=== PATIENT | female | born 1985 | race Caucasian/White ===

== ENCOUNTER → 2016-12-29 | Emergency (ER) | payer OTHER ==
[2016-12-29 21:43] VITALS: TEMP 98.2; BMI 22.3
--- NOTE | 2016-12-29 22:20 | PDOC ---
History of Present Illness <Jean Carlos Talbert - Last Filed: 12/30/16 02:03> - History of Present Illness Initial Comments: 12/29/16 22:42 Patient is a 31 year old female (LNMP: 11/26/16) with no significant medical hx who is presenting to the ED with vaginal spotting and abdominal pain for 2-3 days. Patient reports some brown vaginal spotting but denies any heavy bleeding. She endorses some nausea and RLQ pain with radiation to the lower back. Patient does not receive care. Denies fever, chills, vomiting, or diarrhea. G3/M2/P0 Reports miscarriages occurred within first trimester. Last pap smear was one year ago that was normal. <Missy Prince - Last Filed: 12/30/16 02:07> - General Chief Complaint: Vaginal Bleeding Stated Complaint: VAGINAL BLEEDING/5 WKS Time Seen by Provider: 12/29/16 22:20 Past History - Psycho/Social/Smoking Cessation Hx Anxiety: No Suicidal Ideation: No Smoking History: Never smoked Have you smoked in the past 12 months: No Information on smoking cessation initiated: No Hx Alcohol Use: No Drug/Substance Use Hx: No Substance Use Type: None <Jean Carlos Talbert - Last Filed: 12/30/16 02:03> <Missy Prince - Last Filed: 12/30/16 02:07> - Past Medical History Allergies/Adverse Reactions: Allergies Allergy/AdvReac Type Severity Reaction Status Date / Time No Known Allergies Allergy Verified 12/29/16 21:43 Home Medications: Ambulatory Orders NK [No Known Home Medication] 12/29/16 Review of Systems - Review of Systems Comments:: 12/29/16 22:46 CONSTITUTIONAL: No fever, no chills, no fatigue EYES: No visual changes ENT: No ear pain, no sore throat CARDIOVASCULAR: No chest pain, no palpitations RESPIRATORY: No cough, no SOB GI: RLQ pain, nausea. No vomiting, no constipation, no diarrhea GENITOURINARY: Vaginal spotting. No dysuria, no frequency, no hematuria MUSKULOSKELETAL: No backpain, no joint pain, no myalgias SKIN: No rash NEURO: No headache <Missy Prince - Last Filed: 12/30/16 02:07> *Physical Exam - Vital Signs Last Vital Signs Temp Pulse Resp BP Pulse Ox 98.2 F 80 17 111/70 99 12/29/16 21:39 12/29/16 21:39 12/29/16 21:39 12/29/16 21:39 12/29/16 21:39 <Jean Carlos Talbert - Last Filed: 12/30/16 02:03> - Vital Signs Last Vital Signs Temp Pulse Resp BP Pulse Ox 98.2 F 80 17 111/70 99 12/29/16 21:39 12/29/16 21:39 12/29/16 21:39 12/29/16 21:39 12/29/16 21:39 - Physical Exam Comments: 12/29/16 22:54 CONSTITUTIONAL: Well-appearing; well-nourished; in no apparent distress HEAD: Normocephalic; atraumatic EYES: PERRL; EOM intact ENMT: External appears normal; normal oropharynx NECK: Supple; non-tender; no cervical lymphadenopathy CARD: Normal S1, S2; no murmurs, rubs, or gallops RESP: Normal chest excursion with respiration; breath sounds clear and equal bilaterally; no wheezes, rhonchi, or rales ABD: Soft, non-distended; non-tender; no palpable organomegaly, no palpable hernias EXT: Normal ROM in all four extremities; non-tender to palpation; distal pulses intact SKIN: Warm, dry, no rash NEURO: No focal neurological deficiencies. PELVIC: No external lesions. Small amount of brown blood in the vaginal vault. Os is closed. (exam chaperoned by Missy Prince) <Missy Prince - Last Filed: 12/30/16 02:07> ED Treatment Course - LABORATORY CBC & Chemistry Diagram: 12/29/16 22:58 <Jean Carlos Talbert - Last Filed: 12/30/16 02:03> - LABORATORY CBC & Chemistry Diagram: 12/29/16 22:58 - RADIOLOGY Radiograph Interpretation: 12/30/16 01:53 Application Dba: (matteo) Report Date: 12/30/2016 00:01:00 Report Status: Preliminary Begin of Report Content Referring Physician: Jean Carlos Talbert Patient Name: Laureen Whitehead THIS IS A PRELIMINARY REPORT FROM IMAGING FORMULA TECHNICIAN EXAM: Ultrasound , first trimester and pelvic duplex IMAGES: 53 INDICATION: Left ectopic . Beta hCG level of 2991 DATE OF SERVICE: 2016-12-30 00:01:23.0 COMPARISON: none FINDINGS: Ultrasound : Is anteverted and measures 9.2 cm in length there is a tiny i of the endometrium cystic structure, possibly an AP. A yolk sac or pole. Left ovary is 3.5 cm in length, appears normal dimensions normal flow. Right ovary 2.9 cm in length, contains a thick walled cyst, likely a corpus luteum, but demonstrates normal flow. There is minimal free fluid. Pelvic duplex: Normal arterial and venous flow is noted in both ovaries. IMPRESSION: Possible early IUP prior to visualization of yolk sac or pole. Presumed right ovarian corpus luteum with minimal free fluid. Recommend follow up sonography would correlation to hCG levels for further evaluation. THIS DOCUMENT HAS BEEN ELECTRONICALLY SIGNED José Miguel Hammer MD 12/30/2016 00:54 EST Jeannette. Please call Imaging [facility] [employer] Captain [phone] ([phone]) with questions. End of Report Content <Missy Prince - Last Filed: 12/30/16 02:07> Medical Decision Making - Medical Decision Making 12/30/16 02:03 Patient is a well-appearing 31-year-old female, 3 para 0, last menstrual period of 11/26/2016 presents with mild right lower pelvic pain and vaginal spotting. In the ER, patient is awake and alert, afebrile, hemodynamically stable. Pelvic exam reveals minimal brown blood/discharge in the vaginal vault. Cervical os is closed. Patient's beta hCG is noted to be 2999. Transvaginal challenge shows a questionable endometrial cystic structure which may represent the yolk sac or pole. No definitive evidence of intrauterine is noted. A small thick walled corpus luteum cyst on the right is also noted. There is also trace amount of free fluid. Patient will be discharged with strict ectopic precautions with TOOLROOM MACHINIST follow-up for care. no Rhogam is indicated as patient is Rh+. <Jean Carlos Talbert - Last Filed: 12/30/16 02:03> *DC/Admit/Observation/Transfer - Attestations Physician Attestion: 12/30/16 02:03 The documentation was prepared by the scribe under my direct supervision. I have reviewed the documentation which correctly represents the findings, medical decision-making and critical action taken by me. <Jean Carlos Talbert - Last Filed: 12/30/16 02:03> - Attestations Scribe Attestion: 12/29/16 22:47 Documentation prepared by Missy Prince, acting as medical interpreter for Jean Carlos Talbert MD. <Missy Prince - Last Filed: 12/30/16 02:07> Diagnosis at time of Disposition: Threatened - Discharge Dispostion Disposition: HOME - Referrals Referrals: [facility] [Provider Group] - Patient Instructions Printed Discharge Instructions: DI for Threatened Print Language: TURKISH
[2016-12-29 23:14] LABS: BASOPHIL 0.7 % (0-2.0); EOSINOPHIL 5.6 % (0-4.5); MCH 31.1 pg (25.7-33.7); MEAN CELL VOLUME 91.4 fl (80-96); MEAN PLT VOLUME 7.8 fl (7.5-11.1); NEUTROPHILS 45.7 % (42.8-82.8); PLATELET COUNT 280 K/MM3 (134-434); RDW 13.2 % (11.6-15.6); WHITE BLOOD COUNT 9.1 K/mm3 (4.0-10.0)
[2016-12-29 23:20] LABS: URINE APPEARANCE CLEAR; URINE BILIRUBIN NEGATIVE (NEGATIVE); URINE COLOR LTYELLOW; URINE GLUCOSE (UA) 1+ (NEGATIVE); URINE KETONE TRACE (NEGATIVE); URINE LEUK ESTERASE NEGATIVE (NEGATIVE); URINE NITRITE NEGATIVE (NEGATIVE); URINE PROTEIN NEGATIVE (NEGATIVE); URINE UROBILINOGEN NEGATIVE E.U./dl (0.2-1.0)
[2016-12-29 23:24] LABS: URINE BLOOD 1+ (NEGATIVE)
[2016-12-29 23:27] LABS: URINE BACTERIA RARE /hpf (NONE SEEN); URINE MUCUS RARE; URINE RBC <1 /hpf (0-3); URINE WBC <1 /hpf (3-5)
[2016-12-30 02:30] VITALS: BP 102/57; PULSE 71
== END | disposition home or self-care (01) ==
LOC: SUPCPDRO 21:27 → JER 21:27
DX: O20.0 Threatened abortion (principal); O34.81 Maternal care for other abnormalities of pelvic organs, first trimester; N83.11 Corpus luteum cyst of right ovary; Z3A.01 Less than 8 weeks gestation of pregnancy
CPT/HCPCS: 36415; 76817-TC; 81003; 81015; 84702; 85025; 86850; 86900; 86901; 87086; 99282-25

== ENCOUNTER 2017-01-03 13:14 | Emergency (ER) | payer SELFPAY ==
[2017-01-03 13:18] VITALS: BP 111/57; PULSE 80; TEMP 97.9; BMI 24.0
--- NOTE | 2017-01-03 14:06 | PDOC ---
History of Present Illness - General Chief Complaint: Vaginal Bleeding Stated Complaint: VAGINAL BLEEDING (5 WKS ) Time Seen by Provider: 01/03/17 13:30 History Source: Patient Exam Limitations: No Limitations - History of Present Illness Travel History: No Initial Comments: 01/03/17 13:58 31-year-old female presents the ED with complaints of increased vaginal bleeding since Monday. Patient states was seen here had an ultrasound that showed an early IUP and had a beta hCG of 2900. Patient states was told to return here if symptoms worsen otherwise she can follow-up with her SPEECH COACH. Patient states although the abdominal pain has not increased she is concerned about the bright red blood. Patient denies passage of large clot and denies low back pain. Timing/Duration: reports: getting worse Quality: reports: mild, cramping Abdominal Pain Onset Location: reports: suprapubic Pain Radiation: reports: no radiation Activities at Onset: reports: none Aggravating Factors: improves with: None Alleviating Factors: improves with: None Past History - Past Medical History Allergies/Adverse Reactions: Allergies Allergy/AdvReac Type Severity Reaction Status Date / Time No Known Allergies Allergy Verified 01/03/17 13:18 Home Medications: Ambulatory Orders NK [No Known Home Medication] 12/29/16 - Psycho/Social/Smoking Cessation Hx Anxiety: No Suicidal Ideation: No Smoking History: Never smoked Have you smoked in the past 12 months: No Information on smoking cessation initiated: No Hx Alcohol Use: No Drug/Substance Use Hx: No Substance Use Type: None Patient Lives Alone: No Lives with/in: spouse/SO Review of Systems - Review of Systems Able to Perform ROS?: Yes Constitutional: No: Symptoms Reported HEENTM: No: Symptoms Reported Respiratory: No: Symptoms reported Cardiac (ROS): No: Symptoms Reported ABD/GI: Yes: Abdominal cramping : Yes: Discharge Musculoskeletal: No: Symptoms Reported Neurological: No: Symptoms reported Hematologic/Lymphatic: No: Easy Bleeding *Physical Exam - Vital Signs Last Vital Signs Temp Pulse Resp BP Pulse Ox 97.9 F 80 18 111/57 100 01/03/17 13:15 01/03/17 13:15 01/03/17 13:15 01/03/17 13:15 01/03/17 13:15 - Physical Exam General Appearance: Yes: Nourished, Appropriately Dressed. No: Apparent Distress HEENT: negative: Pale Conjunctivae Neck: positive: Normal Thyroid, Supple Respiratory/Chest: positive: Lungs Clear, Normal Breath Sounds. negative: Respiratory Distress, Accessory Muscle Use Cardiovascular: positive: Regular Rhythm, Regular Rate. negative: Murmur Female Pelvic Exam: positive: cervical os closed, vaginal bleeding (bright red in moderate amt). negative: CMT, adnexal tenderness Gastrointestinal/Abdominal: positive: Soft, Tenderness (mild midsuprapubiuc) Musculoskeletal: negative: CVA Tenderness Extremity: positive: Normal Capillary Refill. negative: Pedal Edema Integumentary: positive: Normal Color, Warm, Moist Neurologic: positive: Motor Strength 5/5 (ambulatory) ED Treatment Course - LABORATORY CBC & Chemistry Diagram: 01/03/17 14:56 01/03/17 13:40 Medical Decision Making - Medical Decision Making 01/03/17 14:06 Patient with increased vaginal bleeding since Monday. Patient had an ultrasound that showed early IUP and is approximately 5-6 weeks . Patient exam did have bright red blood without adnexal tenderness or opened os. Patient ordered for labs and will repeat ultrasound. Laboratory Tests 12/29/16 12/29/16 12/29/16 22:58 22:58 22:58 WBC 9.1 Hgb 14.0 Hct 41.2 Plt Count 280 Eosinophils % 5.6 H Beta HCG, Quant 2991.8 Urine Color Ltyellow Urine Appearance Clear Urine pH 6.0 Ur Specific [place] 1.020 Urine Protein Negative Urine Glucose (UA) 1+ H Urine Ketones Trace H Urine Blood 1+ H Urine Nitrite Negative Ur Leukocyte Esterase Negative Urine WBC <1 01/03/17 15:07 Laboratory Tests 01/03/17 01/03/17 13:40 13:40 Sodium 137 Potassium 5.0 Chloride 102 Carbon Dioxide 27 Anion Gap 8 BUN 7 Creatinine 0.5 L Random Glucose 79 Calcium 10.0 Total Bilirubin 1.5 H AST 28 ALT 31 Alkaline Phosphatase 53 Total Protein 7.9 Albumin 4.3 Beta HCG, Quant 86905.4 Urine Protein 1+ H Urine Blood 3+ H Ur Leukocyte Esterase Negative 01/03/17 16:35 Ultrasound shows a fluid collection that has the appearance of a gestational sac. The mean sac diameter measurement corresponds with gestational age of 5 weeks 3 days. Yolk sac is present however there is no pole identified. There for the viability of his sensation is uncertain. Adjacent to the gestational sac is a small hypoechoic area suspicious a subchorionic bleed. Clinical correlation and continued follow-up as advised. There is no evidence of adnexal masses or free fluid within the pelvis. The right ovary is normal in size and does contain a small cyst measuring 1.3I 1.2 x 0.9 cm. Previous ultrasound that was done on 12/30 demonstrated there was a growth of this structure within the uterus. The right ovary measured 2.9 cm in length. *DC/Admit/Observation/Transfer Diagnosis at time of Disposition: Threatened in first trimester - Discharge Dispostion Disposition: HOME Condition at time of disposition: Good - Patient Instructions Printed Discharge Instructions: DI for Threatened Additional Instructions: Please follow-up with your SPEECH COACH and bring copy of ultrasound report with you. May return to ED if symptoms worsen . otherwise take Tylenol for discomfort
[2017-01-03 14:43] LABS: ALBUMIN 4.3 g/dl (3.4-5.0); ANION GAP 8 (8-16); BILIRUBIN,TOTAL 1.5 mg/dL (0.2-1.0); CO2 27 mmol/L (21-32); COCKROFT - GAULT 164.9255; CREATININE 0.5 mg/dL (0.55-1.02); GLUCOSE,RANDOM 79 mg/dL (74-106); SGPT/ALT 31 U/L (12-78); TOT PROT 7.9 g/dl (6.4-8.2)
[2017-01-03 14:55] LABS: URINE APPEARANCE SLCLOUDY; URINE BILIRUBIN NEGATIVE (NEGATIVE); URINE COLOR LTYELLOW; URINE GLUCOSE (UA) NEGATIVE (NEGATIVE); URINE KETONE NEGATIVE (NEGATIVE); URINE LEUK ESTERASE NEGATIVE (NEGATIVE); URINE NITRITE NEGATIVE (NEGATIVE); URINE UROBILINOGEN NEGATIVE E.U./dl (0.2-1.0)
[2017-01-03 15:00] LABS: ALK PHOS 53 U/L (45-117)
[2017-01-03 15:04] LABS: SGOT/AST 28 U/L (15-37); URINE BLOOD 3+ (NEGATIVE); URINE PROTEIN 1+ (NEGATIVE)
[2017-01-03 15:10] LABS: BASOPHIL 0.8 % (0-2.0); EOSINOPHIL 2.8 % (0-4.5); MCHC 33.7 g/dl (32.0-36.0); MEAN PLT VOLUME 7.5 fl (7.5-11.1); NEUTROPHILS 52.2 % (42.8-82.8); PLATELET COUNT 312 K/MM3 (134-434); RDW 13.5 % (11.6-15.6); WHITE BLOOD COUNT 8.1 K/mm3 (4.0-10.0)
[2017-01-03 15:25] LABS: URINE RBC 1261 /hpf (0-3); URINE WBC 6 /hpf (3-5)
--- NOTE | 2017-01-03 15:53 | PDOC ---
*Physical Exam - Vital Signs Last Vital Signs Temp Pulse Resp BP Pulse Ox 97.9 F 80 18 111/57 100 01/03/17 13:15 01/03/17 13:15 01/03/17 13:15 01/03/17 13:15 01/03/17 13:15 ED Treatment Course - LABORATORY CBC & Chemistry Diagram: 01/03/17 14:56 01/03/17 13:40 - ADDITIONAL ORDERS Additional order review: Laboratory Results 01/03/17 01/03/17 01/03/17 14:10 13:40 13:40 Sodium 137 Potassium 5.0 Chloride 102 Carbon Dioxide 27 Anion Gap 8 BUN 7 Creatinine 0.5 L Creat Clearance w eGFR > 60 Random Glucose 79 Calcium 10.0 Total Bilirubin 1.5 H AST 28 ALT 31 Alkaline Phosphatase 53 Total Protein 7.9 Albumin 4.3 Beta HCG, Quant Cancelled 46465.4 Urine Color Ltyellow Urine Appearance Slcloudy Urine pH 8.0 D Urine Protein 1+ H Urine Glucose (UA) Negative Urine Ketones Negative Urine Blood 3+ H Urine Nitrite Negative Urine Bilirubin Negative Urine Urobilinogen Negative Ur Leukocyte Esterase Negative Urine RBC 1261 Urine WBC 6 Ur Epithelial Cells Rare 01/03/17 01/03/17 14:56 13:40 RBC 4.91 Cancelled MCV 92.0 Cancelled MCHC 33.7 Cancelled RDW 13.5 Cancelled MPV 7.5 Cancelled Neutrophils % 52.2 Cancelled Lymphocytes % 33.2 Cancelled Monocytes % 11.0 H Cancelled Eosinophils % 2.8 Cancelled Basophils % 0.8 Cancelled Medical Decision Making - Medical Decision Making 01/03/17 15:52 Pt seen by Midlevel Provider under my direct supervision Pt interviewed and examined Ancillary studies reviewed I agree with plan as outlined by Midlevel Provider 01/03/17 15:53 Laboratory Tests 01/03/17 13:40 Beta HCG, Quant 19766.4 01/03/17 15:53 Laboratory Tests 12/29/16 22:58 Blood Type B POSITIVE *DC/Admit/Observation/Transfer Diagnosis at time of Disposition: Threatened in first trimester - Discharge Dispostion Disposition: HOME Condition at time of disposition: Good - Patient Instructions Printed Discharge Instructions: DI for Threatened Additional Instructions: Please follow-up with your INSTRUMENT LENS INSPECTOR and bring copy of ultrasound report with you. May return to ED if symptoms worsen . otherwise take Tylenol for discomfort - Post Discharge Activity Work/School Note: Back to Work
== END 2017-01-03 16:52 | disposition home or self-care (01) ==
LOC: JER 13:14
DX: O20.0 Threatened abortion (principal); Z3A.01 Less than 8 weeks gestation of pregnancy
CPT/HCPCS: 36415; 76801-TC; 76817-TC; 80053; 81003; 81015; 84702; 85025; 99284-25

== ENCOUNTER 2017-01-13 15:13 | Emergency (ER) | payer SELFPAY ==
[2017-01-13 15:19] VITALS: BMI 22.6
[2017-01-13 15:44] LABS: BASOPHIL 0.3 % (0-2.0); EOSINOPHIL 2.2 % (0-4.5); MCHC 33.8 g/dl (32.0-36.0); MEAN CELL VOLUME 91.9 fl (80-96); MEAN PLT VOLUME 7.5 fl (7.5-11.1); PLATELET COUNT 292 K/MM3 (134-434); RDW 13.3 % (11.6-15.6); WHITE BLOOD COUNT 10.2 K/mm3 (4.0-10.0)
--- NOTE | 2017-01-13 15:44 | PDOC ---
History of Present Illness - General History Source: Patient, Registered Nurse Cardiac Used (Therapy Tech ID: [id number]) Exam Limitations: No Limitations - History of Present Illness Initial Comments: 01/13/17 16:40 The patient is a 31 year old female A2 who is approximately 7 weeks , with no significant past medical history, who presents today complaining of 1 week of vaginal bleeding. The patient states that she sees blood on the toilet paper when she wipes. She notes that she has some lower abdominal pain, 4 /10 in severity, and frequent urination. She denies nausea. She reports a bitter taste in her mouth. On 01/03/17 she had an ultrasound that reported a 5 week 3 day intrauterine . She is not taking vitamins. Denies fever, chills, nausea, vomiting. Allergies:None reported OBGYN: Dr. Carol sanchez <Heather Ballard - Last Filed: 01/13/17 16:40> - General History Source: Patient Exam Limitations: No Limitations <Leigha Burris - Last Filed: 01/14/17 19:56> - General Chief Complaint: Vaginal Bleeding Stated Complaint: BLEEDING (7 WKS ) Time Seen by Provider: 01/13/17 15:36 Past History <Heather Ballard - Last Filed: 01/13/17 16:40> - Psycho/Social/Smoking Cessation Hx Anxiety: No Suicidal Ideation: No Smoking History: Never smoked Have you smoked in the past 12 months: No Information on smoking cessation initiated: No Hx Alcohol Use: No Drug/Substance Use Hx: No Substance Use Type: None <Leigha Burris - Last Filed: 01/14/17 19:56> - Past Medical History Allergies/Adverse Reactions: Allergies Allergy/AdvReac Type Severity Reaction Status Date / Time No Known Allergies Allergy Verified 01/13/17 15:19 Home Medications: Ambulatory Orders Pnv95/Ferrous Fumarate/FA [ Vitamin Tablet] 1 each PO DAILY #60 tablet 01/13/17 Review of Systems - Review of Systems Able to Perform ROS?: Yes Comments:: 01/13/17 16:41 GENERAL/CONSTITUTIONAL: No: fever, chills, weakness, loss of appetite. HEAD, EYES, EARS, NOSE AND THROAT: No: change in vision, ear pain, discharge, sore throat, throat swelling. CARDIOVASCULAR: No: chest pain, lightheadedness, palpitations, syncope RESPIRATORY: No: cough, shortness of breath, wheezing, hemoptysis, stridor. GASTROINTESTINAL: +abdominal cramping, No: nausea, vomiting, diarrhea, rectal bleeding, constipation. GENITOURINARY: +frequency. +vaginal bleeding.No: dysuria, hematuria, frequency, urgency, flank pain. MUSCULOSKELETAL: No: back pain, neck pain, joint pain, muscle swelling or pain SKIN: No: lesions, pallor, rash or easy bruising. NEUROLOGIC: No: headache, vertigo, paresthesias, weakness ENDOCRINE: No: unexplained weight gain or loss HEMATOLOGIC/LYMPHATIC: No: anemia, easy bleeding, swelling nodes <Heather Ballard - Last Filed: 01/13/17 16:40> *Physical Exam - Vital Signs Last Vital Signs Temp Pulse Resp BP Pulse Ox 97.9 F 81 18 116/64 99 01/13/17 15:16 01/13/17 15:16 01/13/17 15:16 01/13/17 15:16 01/13/17 15:16 - Physical Exam Comments: 01/13/17 16:42 GENERAL: The patient is in no acute distress. HEAD: Normal with no signs of trauma. EYES: PERRLA, EOMI, sclera anicteric, conjunctiva clear. ENT: Ears normal, nares patent, oropharynx clear without exudates. Moist mucous membranes. NECK: Normal range of motion, supple without lymphadenopathy, JVD, or masses. LUNGS: Breath sounds equal, clear to auscultation bilaterally. No wheezes, and no crackles. HEART:Regular rate and rhythm, normal S1 and S2 without murmur, rub or gallop. ABDOMEN: Soft, nontender, normoactive bowel sounds. No guarding, no rebound. PELVIC: +Dry blood in vault. No active bleeding. Os closed. EXTREMITIES: Normal range of motion, no edema. No clubbing or cyanosis. No erythema, or tenderness. NEUROLOGICAL: Cranial nerves II through XII grossly intact. Normal speech. No focal neurological deficits. MUSCULOSKELETAL: Back nontender to palpation, no CVA tenderness SKIN: Warm, Dry, normal turgor, no rashes or lesions noted. <Heather Ballard - Last Filed: 01/13/17 16:40> - Vital Signs Last Vital Signs Temp Pulse Resp BP Pulse Ox 97.9 F 81 18 116/64 99 01/13/17 15:16 01/13/17 15:16 01/13/17 15:16 01/13/17 15:16 01/13/17 15:16 <Leigha Burris - Last Filed: 01/14/17 19:56> ED Treatment Course - LABORATORY CBC & Chemistry Diagram: 01/13/17 15:40 01/13/17 15:40 - ADDITIONAL ORDERS Additional order review: Laboratory Results 01/13/17 01/13/17 15:50 15:40 Sodium 138 Potassium 4.0 Chloride 103 Carbon Dioxide 27 Anion Gap 8 BUN 5 L D Creatinine 0.6 Creat Clearance w eGFR > 60 Random Glucose 109 H D Calcium 9.8 Total Bilirubin 0.6 D AST 18 D ALT 29 Alkaline Phosphatase 51 Total Protein 7.0 Albumin 3.9 Beta HCG, Quant 62529.8 Urine Color Ltyellow Urine Appearance Clear Urine pH 6.0 D Urine Protein Negative Urine Glucose (UA) Negative Urine Ketones Negative Urine Blood 3+ H Urine Nitrite Negative Urine Bilirubin Negative Urine Urobilinogen Negative Ur Leukocyte Esterase Negative Urine RBC 3 Urine WBC 3 Ur Epithelial Cells Rare Urine Bacteria Rare Urine Mucus Rare 01/13/17 15:40 RBC 4.40 MCV 91.9 MCHC 33.8 RDW 13.3 MPV 7.5 Neutrophils % 64.0 D Lymphocytes % 26.0 D Monocytes % 7.5 Eosinophils % 2.2 Basophils % 0.3 <Heather Ballard - Last Filed: 01/13/17 16:40> - LABORATORY CBC & Chemistry Diagram: 01/13/17 15:40 01/13/17 15:40 <Leigha Burris - Last Filed: 01/14/17 19:56> Medical Decision Making - Medical Decision Making 01/13/17 15:43 A portion of this note was documented by scribe services under my direction. I have reviewed the details of the note, within reason, and agree with the documentation with the following case summary and management plan written by me. Nursing documentation reviewed and incorporated into medical decision making 01/13/17 16:30 This is a 31 yo A2 Approximately 7 weeks Presenting to the ER again for vaginal bleeding US 2 weeks ago demonstrated IUP She had not saturated pads She had noticed blood when she is sitting on the toilet mild lower abdominal pain, rated 4/10 She has no lightheadedness or dizziness Was last seen last week by her centrifugal extractor operator, at that time, BHCG was appropriate according to patient She was told to come to the ER??? or sent to the ER by her centrifugal extractor operator?? On examination: Small amount of dark blood in the vault No active bleeding Mild lower abdominal tenderness Will send labs Will do US (Again) 01/13/17 16:34 Laboratory Tests 01/03/17 01/03/17 01/13/17 13:40 14:56 15:40 WBC 8.1 10.2 H Hgb 15.2 13.6 D Hct 45.2 40.4 Plt Count 312 292 BUN 7 Creatinine 0.5 L Beta HCG, Quant 86413.4 01/13/17 15:40 WBC Hgb Hct Plt Count BUN 5 L D Creatinine 0.6 Beta HCG, Quant 25950.8 Awaiting TVUS Pt is currently not taking vitamins She denies signs of UTI Signed out to Dr Bello Clinical impression: threatened ab 01/13/17 16:36 Laboratory Tests 12/29/16 22:58 Blood Type B POSITIVE <Leigha Burris - Last Filed: 01/14/17 19:56> *DC/Admit/Observation/Transfer - Attestations Scribe Attestion: 01/13/17 16:42 Documentation prepared by DELANEY Marie, acting as medical collections specialist for Leigha Burris MD/DO. <Heather Ballard - Last Filed: 01/13/17 16:40> - Discharge Dispostion Admit: No <Leigha Burris - Last Filed: 01/14/17 19:56> Diagnosis at time of Disposition: Threatened - Discharge Dispostion Disposition: HOME - Prescriptions Prescriptions: Pnv95/Ferrous Fumarate/FA [ Vitamin Tablet] 1 each PO DAILY #60 tablet - Referrals Referrals: Oseas Romero MD [Staff Physician] - Marya Cochran MD [Staff Physician] - - Patient Instructions Printed Discharge Instructions: DI for Threatened Additional Instructions: Thank you for coming in to the ER today Please follow up with your rivet sorter Please take pre denice vitamins Please monitor yourself for lower abdominal pain, heavy vaginal bleeding ( saturating 2 pads/hour x 2 hours) Print Language: SENEGALESE - Post Discharge Activity Work/School Note: Back to Work
[2017-01-13 15:57] LABS: URINE APPEARANCE CLEAR; URINE BILIRUBIN NEGATIVE (NEGATIVE); URINE COLOR LTYELLOW; URINE GLUCOSE (UA) NEGATIVE (NEGATIVE); URINE KETONE NEGATIVE (NEGATIVE); URINE LEUK ESTERASE NEGATIVE (NEGATIVE); URINE NITRITE NEGATIVE (NEGATIVE); URINE PROTEIN NEGATIVE (NEGATIVE); URINE UROBILINOGEN NEGATIVE E.U./dl (0.2-1.0)
[2017-01-13 15:58] LABS: URINE BLOOD 3+ (NEGATIVE)
[2017-01-13 15:59] LABS: URINE BACTERIA RARE /hpf (NONE SEEN); URINE MUCUS RARE; URINE RBC 3 /hpf (0-3); URINE WBC 3 /hpf (3-5)
[2017-01-13 16:09] LABS: ALBUMIN 3.9 g/dl (3.4-5.0); ANION GAP 8 (8-16); BILIRUBIN,TOTAL 0.6 mg/dL (0.2-1.0); CALCIUM 9.8 mg/dL (8.5-10.1); CO2 27 mmol/L (21-32); COCKROFT - GAULT 137.4365; CREATININE 0.6 mg/dL (0.55-1.02); GLUCOSE,RANDOM 109 mg/dL (74-106); SGOT/AST 18 U/L (15-37); SGPT/ALT 29 U/L (12-78)
[2017-01-13 16:26] LABS: ALK PHOS 51 U/L (45-117)
[2017-01-13 17:52] VITALS: BP 104/59; PULSE 72; TEMP 98.2
--- NOTE | 2017-01-13 18:50 | PDOC ---
*Physical Exam - Vital Signs Last Vital Signs Temp Pulse Resp BP Pulse Ox 98.2 F 72 17 104/59 98 01/13/17 17:51 01/13/17 17:51 01/13/17 17:51 01/13/17 17:51 01/13/17 17:51 ED Treatment Course - LABORATORY CBC & Chemistry Diagram: 01/13/17 15:40 01/13/17 15:40 - ADDITIONAL ORDERS Additional order review: Laboratory Results 01/13/17 01/13/17 01/13/17 15:50 15:40 15:40 Sodium 138 Potassium 4.0 Chloride 103 Carbon Dioxide 27 Anion Gap 8 BUN 5 L D Creatinine 0.6 Creat Clearance w eGFR > 60 Random Glucose 109 H D Calcium 9.8 Total Bilirubin 0.6 D AST 18 D ALT 29 Alkaline Phosphatase 51 Total Protein 7.0 Albumin 3.9 Beta HCG, Quant 37912.8 Urine Color Ltyellow Urine Appearance Clear Urine pH 6.0 D Ur Specific [place] 1.010 Urine Protein Negative Urine Glucose (UA) Negative Urine Ketones Negative Urine Blood 3+ H Urine Nitrite Negative Urine Bilirubin Negative Urine Urobilinogen Negative Ur Leukocyte Esterase Negative Urine RBC 3 Urine WBC 3 Ur Epithelial Cells Rare Urine Bacteria Rare Urine Mucus Rare Blood Type B POSITIVE Antibody Screen Negative 01/13/17 15:40 RBC 4.40 MCV 91.9 MCHC 33.8 RDW 13.3 MPV 7.5 Neutrophils % 64.0 D Lymphocytes % 26.0 D Monocytes % 7.5 Eosinophils % 2.2 Basophils % 0.3 Medical Decision Making - Medical Decision Making 01/13/17 18:[address] Burris as pending US. US shows live IUP with subchorionic hemmorhage. Will discharge home. *DC/Admit/Observation/Transfer Diagnosis at time of Disposition: Threatened - Discharge Dispostion Disposition: HOME Admit: No - Prescriptions Prescriptions: Pnv95/Ferrous Fumarate/FA [ Vitamin Tablet] 1 each PO DAILY #60 tablet - Referrals Referrals: Oseas Romero MD [Staff Physician] - Marya Cochran MD [Staff Physician] - - Patient Instructions Printed Discharge Instructions: DI for Threatened Additional Instructions: Thank you for coming in to the ER today Please follow up with your data collection interviewer Please take pre denice vitamins Please monitor yourself for lower abdominal pain, heavy vaginal bleeding ( saturating 2 pads/hour x 2 hours) Print Language: SAMI - Post Discharge Activity Work/School Note: Back to Work
== END 2017-01-13 18:59 | disposition home or self-care (01) ==
LOC: JER 15:13
DX: O20.0 Threatened abortion (principal); Z3A.01 Less than 8 weeks gestation of pregnancy
CPT/HCPCS: 36415; 76801-TC; 80053; 81003; 81015; 84702; 85025; 86850; 86900; 86901; 99283-25

== ENCOUNTER 2017-11-28 23:08 | Emergency (ER) | payer OTHER ==
[2017-11-28 23:23] VITALS: BP 102/66; PULSE 79; TEMP 97.6; BMI 27.4
--- NOTE | 2017-11-29 00:08 | PDOC ---
History of Present Illness - History of Present Illness Initial Comments: 11/29/17 00:43 Patient is a 32 yo Ukrainian speaking F, (3 previous miscarriages during 1st trimester), who presents with abdominal pain and cramping. Patient states that she had an US on the at [facility] which showed a single live IUP 14 weeks. She was told to come back in 3 weeks. She states her LMP was 08/20/17. She is here today because she states that at 5 am she began experiencing abdominal cramping every 2 hours or so. At 5pm she reports clear vaginal liquid/ discharge. She is also complaining of a headache. Denies fever, vomitting. <Kendy La - Last Filed: 11/29/17 01:28> <Marianne Thakkar - Last Filed: 11/29/17 01:37> - General Chief Complaint: Pain, Acute Stated Complaint: 14 WEEK PREG, PAIN Time Seen by Provider: 11/28/17 23:30 Past History <Kendy La - Last Filed: 11/29/17 01:28> - Reproductive History (#): 3 Para: 0 Spontaneous : 2 - Suicide/Smoking/Psychosocial Hx Smoking History: Never smoked Have you smoked in the past 12 months: No Information on smoking cessation initiated: No Hx Alcohol Use: No Drug/Substance Use Hx: No Substance Use Type: None <Marianne Thakkar - Last Filed: 11/29/17 01:37> - Past Medical History Allergies/Adverse Reactions: Allergies Allergy/AdvReac Type Severity Reaction Status Date / Time No Known Allergies Allergy Verified 11/28/17 23:21 Home Medications: Ambulatory Orders Pnv No.95/Ferrous Fum/Folic AC [ Vitamin Tablet] 1 each PO DAILY #60 tablet 01/13/17 Review of Systems - Review of Systems Comments:: 11/29/17 00:43 CONSTITUTIONAL: Absent: fever, chills, diaphoresis, generalized weakness, malaise, loss of appetite HEENT: Absent: rhinorrhea, nasal congestion, throat pain, throat swelling, difficulty swallowing, mouth swelling, ear pain, eye pain, visual changes CARDIOVASCULAR: Absent: chest pain, syncope, palpitations, irregular heart rate, lightheadedness , peripheral edema RESPIRATORY: Absent: cough, shortness of breath, dyspnea with exertion, orthopnea, wheezing, stridor, hemoptysis GASTROINTESTINAL: Present: abdominal pain and cramping. Absent: abdominal distension, nausea, vomiting, diarrhea, constipation, melena , hematochezia GENITOURINARY: Absent: dysuria, frequency, urgency, hesitancy, hematuria, flank pain, genital pain GYNECOLOGICAL: clear vaginal discharge/liquid MUSCULOSKELETAL: Absent: myalgia, arthralgia, joint swelling SKIN: Absent: rash, itching, pallor HEMATOLOGIC/IMMUNOLOGIC: Absent: easy bleeding, easy bruising, lymphadenopathy, frequent infections ENDOCRINE: Absent: unexplained weight gain, unexplained weight loss, heat intolerance, cold intolerance NEUROLOGIC: Present: headache Absent: focal weakness or paresthesias, dizziness, unsteady gait, seizure, mental status changes, bladder or bowel incontinence PSYCHIATRIC: Absent: anxiety, depression, suicidal or homicidal ideation, hallucinations. Is the patient limited Uzbek proficient: Yes <Kendy La - Last Filed: 11/29/17 01:28> *Physical Exam - Vital Signs Last Vital Signs Temp Pulse Resp BP Pulse Ox 97.6 F 79 20 102/66 97 11/28/17 23:21 11/28/17 23:21 11/28/17 23:21 11/28/17 23:21 11/28/17 23:21 - Physical Exam Comments: 11/29/17 01:01 GENERAL: Well developed, well nourished. Awake and alert. No acute distress. HEENT: Normocephalic, atraumatic. PERRLA, EOMI. No conjunctival pallor. Sclera are non- icteric. Moist mucous membranes. Oropharynx is clear. NECK: Supple. Full ROM. No JVD. Carotid pulses 2+ and symmetric, without bruits. No thyromegaly. No lymphadenopathy. CARDIOVASCULAR: Regular rate and rhythm. No murmurs, rubs, or gallops. Distal pulses are 2+ and symmetric. PULMONARY: No evidence of respiratory distress. Lungs clear to auscultation bilaterally. No wheezing, rales or rhonchi. ABDOMINAL: . Non-tender. No rebound or guarding. No organomegaly. Normoactive bowel sounds. MUSCULOSKELETAL: Normal range of motion at all joints. No bony deformities or tenderness. No CVA tenderness. EXTREMITIES: No cyanosis. No clubbing. No edema. No calf tenderness. SKIN: Warm and dry. Normal capillary refill. No rashes. No jaundice. NEUROLOGICAL: Alert, awake, appropriate. Cranial nerves 2-12 intact. No deficits to light touch and temperature in face, upper extremities and lower extremities. No motor deficits in the in face, upper extremities and lower extremities. Normoreflexic in the upper and lower extremities. Normal speech. Toes are down-going bilaterally. Gait is normal without ataxia. PSYCHIATRIC: Cooperative. Good eye contact. Appropriate mood and affect. <Kendy La - Last Filed: 11/29/17 01:28> - Vital Signs Last Vital Signs Temp Pulse Resp BP Pulse Ox 97.6 F 79 20 102/66 97 11/28/17 23:21 11/28/17 23:21 11/28/17 23:21 11/28/17 23:21 11/28/17 23:21 <Marianne Thakkar - Last Filed: 11/29/17 01:37> ED Treatment Course - RADIOLOGY Radiograph Interpretation: 11/29/17 01:28 US - OB Findings: Single live IUP in breech position with estimated 14 weeks and days with normal heart rate of 148 beats per minute. Normal amniotic fluid for age. There is funneling of the cervix. There is an anterior placenta with a placental cornejo no definite bleed or previa. Ovary not identified. No free fluid. Reported by: José Miguel Hammer MD 11/29/1708/24 <Kendy La - Last Filed: 11/29/17 01:28> Medical Decision Making - Medical Decision Making 11/29/17 01:[address] Cochran TOP SCREW about this patient's ultrasound. This 32-year-old female has had 4 pregnancies and 3, PRIOR miscarriages She says she has not been referred to a high school coach/GYN Ultrasound shows a single live IUP at 14 weeks and 0 days, heart tones 148. However, there is a normal amount of amniotic fluid. There is FUNNELING the cervix. There is an anterior placenta with a placenta cornejo been no definite improvement or previa impression cervical funneling The plan is for the patient to GO to [address] [place] [address] first thing in the morning with her ultrasound report. She should be seen by a specialist at [facility] <Marianne Thakkar - Last Filed: 11/29/17 01:37> *DC/Admit/Observation/Transfer - Attestations Scribe Attestion: 11/29/17 00:55 Documentation prepared by Kendy La, acting as medical transcriptionist for Marianne Thakkar MD. <Kendy La - Last Filed: 11/29/17 01:28> <Marianne Thakkar - Last Filed: 11/29/17 01:37> Diagnosis at time of Disposition: Cervical funneling - Discharge Dispostion Disposition: HOME Condition at time of disposition: Stable - Referrals Referrals: Carol Weaver MD [Primary Care Provider] - Marya Cochran MD [Staff Physician] - - Patient Instructions Printed Discharge Instructions: DI for Threatened Additional Instructions: Rest your pelvic ultrasound showed cervical funneling and a live IUP with heart tones of 148 you need to go to the [address] [place] [address] clinic in the morning with your ultrasound report as per Dr Cochran You should be followed by a specialist for high risk pregnancies at [facility] - Post Discharge Activity
[2017-11-29] MEDS ORDERED: ACETAMINOPHEN 325 MG TABLET (FP) PO ONE (01:53)
[2017-11-29] MEDS ORDERED: ACETAMINOPHEN 325 MG TABLET (FP) ONE (01:55)
== END 2017-11-29 01:58 | disposition home or self-care (01) ==
LOC: JER 23:08
PROC: 3E0337Z Introduction of Electrolytic and Water Balance Substance into Peripheral Vein, Percutaneous Approach (ICD-10-PCS; principal; 2017-11-28)
DX: O03.9 Complete or unspecified spontaneous abortion without complication (principal); Z3A.14 14 weeks gestation of pregnancy
CPT/HCPCS: 76801-TC; 96360; 99281-25

== ENCOUNTER 2017-11-29 05:52 | Day surgery (SDC) | payer OTHER ==
[2017-11-29 06:00] VITALS: BMI 24.1
--- NOTE | 2017-11-29 06:55 | PDOC ---
History of Present Illness - General Chief Complaint: Vaginal Bleeding Stated Complaint: VAGINAL BLEEDING, 14 WKS Time Seen by Provider: 11/29/17 05:55 History Source: Patient Exam Limitations: Language Barrier (DONNA Zabala, provided icelandic translation) - History of Present Illness Initial Comments: CHIEF COMPLAINT: 32 y/o afebrile female, M3, approximately 14 week female who was seen here last night has returned for vaginal bleeding. HISTORY OF PRESENT ILLNESS: The patient was seen by Dr. Thakkar last night. She had an ultrasound that showed funneling. She was supposed to f/u first thing this morning at [address] for PROCESS COACH consult after Dr. Thakkar discussed ultrasound with Dr. Cochran. The patient states she woke up this morning and had a lot of bleeding and couldn't wait until [address] opened. Vital signs on arrival are within normal limits. REVIEW OF SYSTEMS: GENERAL/CONSTITUTIONAL: No fever/chills. No weakness. No weight change. HEAD, EYES, EARS, NOSE AND THROAT: No change in vision. No ear pain or discharge. No sore throat. CARDIOVASCULAR: No chest pain or shortness of breath. RESPIRATORY: No cough, wheezing, or hemoptysis. GASTROINTESTINAL: No nausea, vomiting, diarrhea. +vaginal bleeding GENITOURINARY: No dysuria, frequency, or change in urination. MUSCULOSKELETAL: No joint or muscle swelling or pain. No neck or back pain. SKIN: No rash or easy bruising. NEUROLOGIC: No headache, vertigo, loss of consciousness, or loss of sensation. PHYSICAL EXAM: GENERAL: The patient is awake, alert, and fully oriented, in no acute distress. HEAD: Normal with no signs of trauma. ENT: Pupils equal, round and reactive to light, extraocular movements intact, sclera anicteric, conjunctiva clear. Neck supple. LUNGS: Clear to auscultation bilaterally. Normal excursion. No respiratory distress or use of accessory muscles. CV: RRR, S1/S2, no MRG. Cap refill < 2 sec. ABDOMEN: Soft, non-distended, non-tender even to deep palpation, no hepatomegaly or splenomegaly, no masses. VAGINAL: DEFERRED EXTREMITIES: Normal range of motion, no edema. NEUROLOGICAL: Normal speech, normal gait. CN II-XII grossly intact. PSYCH: Normal mood, normal affect. SKIN: Warm, dry, normal turgor, no rashes or lesions noted. Past History - Past Medical History Allergies/Adverse Reactions: Allergies Allergy/AdvReac Type Severity Reaction Status Date / Time No Known Allergies Allergy Verified 11/29/17 05:59 Home Medications: Ambulatory Orders Pnv No.95/Ferrous Fum/Folic AC [ Vitamin Tablet] 1 each PO DAILY #60 tablet 01/13/17 - Reproductive History (#): 3 Para: 0 Spontaneous : 2 - Suicide/Smoking/Psychosocial Hx Smoking History: Never smoked Have you smoked in the past 12 months: No Information on smoking cessation initiated: No Hx Alcohol Use: No Drug/Substance Use Hx: No Substance Use Type: None *Physical Exam - Vital Signs Last Vital Signs Temp Pulse Resp BP Pulse Ox 98.7 F 75 20 117/71 100 11/29/17 05:59 11/29/17 05:59 11/29/17 05:59 11/29/17 05:59 11/29/17 05:59 ED Treatment Course - LABORATORY CBC & Chemistry Diagram: 11/29/17 21:10 11/29/17 07:45 Medical Decision Making - Medical Decision Making A/P: 32 y/o female, approximately 14 weeks . The patient was here last night. Ultrasound showed funneling. Dr. Cochran was consulted and she wanted the patient to f/u first thing this morning at [facility]. The patient woke up to urinate this morning and had a lot of vaginal bleeding so she came back. Will send for repeat ultrasound at 8am. I am signing this patient out to my colleague: KHANG Ernst In brief, this patient is being seen in the ED for a chief complaint of: vaginal bleeding, 14 weeks I have completed the initial assessment interview note and have ordered: ultrasound I have reviewed the following results: none Pending results are: ultrasound Plan for disposition is as follows: pending *DC/Admit/Observation/Transfer Diagnosis at time of Disposition: Incomplete miscarriage - Discharge Dispostion Disposition: HOME Condition at time of disposition: Good - Referrals - Patient Instructions - Post Discharge Activity
--- NOTE | 2017-11-29 08:06 | PDOC ---
*Physical Exam - Vital Signs Last Vital Signs Temp Pulse Resp BP Pulse Ox 98.7 F 75 20 117/71 100 11/29/17 05:59 11/29/17 05:59 11/29/17 05:59 11/29/17 05:59 11/29/17 05:59 - Physical Exam General Appearance: Yes: Appropriately Dressed. No: Apparent Distress HEENT: positive: Normal Voice Neck: positive: Supple Respiratory/Chest: negative: Respiratory Distress Female Pelvic Exam: positive: cervical os closed, normal adnexa, vaginal bleeding (w/ 1 small clot). negative: CMT Gastrointestinal/Abdominal: positive: Tender (minimal ttp to mid suprapubic area , no ttp to RLQ), Soft Musculoskeletal: negative: CVA Tenderness Integumentary: positive: Dry, Warm Neurologic: positive: Fully Oriented, Alert, Normal Mood/Affect ED Treatment Course - LABORATORY CBC & Chemistry Diagram: 11/29/17 21:10 11/29/17 07:45 Medical Decision Making - Medical Decision Making 11/29/17 08:18 Patient signed out to me at 7 AM Patient is a 32-year-old female, G4,P0 with 3 spontaneous ABs, currently 14 weeks and here with vaginal bleeding this a.m. Patient was seen in ED yesterday for abdominal pain and had ultrasound demonstrating IUP at 14 weeks with cardiac activity. Also seen on ultrasound was funneling of the cervix. Patient was discharged to f/u with AIR CONDITIONING SHEET METAL INSTALLER this am and also referred to high density talc coater operator at [facility]. Patient denies dysuria, nausea, vomiting, fever or chills. Pelvic exam with moderate bleeding with close os. Beta pending today, no beta sent yesterday. Repeat ultrasound in progress. 11/29/17 12:[address] Deleon, ultrasound re-demonstrates IUP with cardiac activity, but states fetus located in lower segment of uterus and unable to see cervix now. Possible in progress. Patient remained stable in ED. Given that patient had am appt with AIR CONDITIONING SHEET METAL INSTALLER this a.m., will contact Dr. Cochran 11/29/17 13:[address] Cochran who states that we should call AIR CONDITIONING SHEET METAL INSTALLER on-call. I contacted Dr. Soriano and a/w call back 11/29/17 14:18 Beta 28K. 2+ glucose, trace ketones and 3+ leuk esterase on UA. Will get blood work at this point in give patient IV fluids. As this time still pending call back from AIR CONDITIONING SHEET METAL INSTALLER 11/29/17 14:[address] Soriano who states she will come down to ED to evaluate. 11/29/17 15:[address] Soriano who states she can see cord protruding from vaginal vault. Recommending vaginal cytotec, which MZakia will place herself. 11/29/17 15:57 Intravaginal Cytotec placed by Dr. Soriano who states it takes an average of 4 hours for tissue to be expelled and possibly more time for placenta to be expelled. States if patient is discharged, should follow up in 2 weeks. 11/29/17 18:41 Patient passed intact fetus with most of umbilical cord. Awaiting formalin container to place specimen and sent to pathology. Patient complaining of pain now, IM Demerol in progress. Will need repeat pelvic exam at some point 11/29/17 19:06 Patient signed out to now, ROBBY Thakkar at this point a/w reassessment *DC/Admit/Observation/Transfer Diagnosis at time of Disposition: Incomplete miscarriage - Discharge Dispostion Disposition: HOME Condition at time of disposition: Good - Referrals - Patient Instructions - Post Discharge Activity
[2017-11-29 13:36] LABS: URINE APPEARANCE CLOUDY; URINE BILIRUBIN NEGATIVE (<2.0 mg/dL); URINE BLOOD 3+ (NEGATIVE); URINE COLOR YELLOW; URINE GLUCOSE (UA) 2+ (NEGATIVE); URINE KETONE TRACE (NEGATIVE); URINE LEUK ESTERASE 3+ (NEGATIVE); URINE NITRITE NEGATIVE (NEGATIVE); URINE PROTEIN 2+ (NEGATIVE); URINE UROBILINOGEN NEGATIVE mg/dL (0.2-1.0)
[2017-11-29 13:47] LABS: EPI CELLS FEW /HPF (FEW); URINE MUCUS RARE
[2017-11-29] MEDS ORDERED: SODIUM CHLORIDE 1,000 ML IV STA ×2 (14:17→19:40)
--- NOTE | 2017-11-29 15:16 | CON.OBG ---
Consult Consult Specialty:: SALES SERVICE MANAGER Reason for Consultation:: Vaginal bleeding in - History of Present Illness Chief Complaint: Vaginal bleeding History of Present Illness: 32 yo , @ 14 weeks gestation, presents to ER c/o abdominal pain associated with vaginal bleeding. She had a sonogram showing evidence of a low lying fetus with positive heart rate. I came to see patient, she was stable but continue to experience vaginal bleeding and lower abdominal cramps. - History Source History Provided By: Patient Limitations to Obtaining History: No Limitations - Past Medical History ...: Yes (16 wks) ...: 4 ...Para: 0 - Past Surgical History Past Surgical History: Yes: None - Alcohol/Substance Use Hx Alcohol Use: No History of Substance Use: reports: None - Smoking History Smoking history: Never smoked Have you smoked in the past 12 months: No Home Medications - Allergies Allergies/Adverse Reactions: Allergies Allergy/AdvReac Type Severity Reaction Status Date / Time No Known Allergies Allergy Verified 11/29/17 05:59 - Home Medications Home Medications: Ambulatory Orders Pnv No.95/Ferrous Fum/Folic AC [ Vitamin Tablet] 1 each PO DAILY #60 tablet 01/13/17 Family Disease History - Family Disease History Family History: Unremarkable Review of Systems - Review of Systems Constitutional: reports: Weakness. denies: Malaise Eyes: reports: No Symptoms Neck: reports: No Symptoms Cardiovascular: reports: No Symptoms Respiratory: reports: No Symptoms Genitourinary: reports: Pain, Vaginal Bleeding Musculoskeletal: reports: No Symptoms Neurological: reports: No Symptoms Psychiatric: reports: No Symptoms Pain Intensity: 5 Physical Exam-FUGITIVE DETECTIVE Vital Signs: Vital Signs Temperature 98 F 11/29/17 11:07 Pulse Rate 71 11/29/17 11:07 Respiratory Rate 17 11/29/17 11:07 Blood Pressure 102/55 11/29/17 11:07 O2 Sat by Pulse Oximetry (%) 98 11/29/17 11:07 Constitutional: Yes: No Distress, Calm Eyes: Yes: Conjunctiva Clear HENT: Yes: Atraumatic Neck: Yes: Supple Cardiovascular: Yes: Regular Rate and Rhythm Respiratory: Yes: Regular Gastrointestinal: Yes: Normal Bowel Sounds External Genitalia: Yes: Normal Vaginal Exam: Yes: Bleeding Cervix: Yes: Other (Umbilical cord protruding out of the cervical os) Uterus: Yes: Other (Gravid) Neurological: Yes: Alert, Oriented ...Motor Strength: WNL Psychiatric: Yes: Alert, Oriented Problem List - Problems (1) Inevitable Code(s): O03.9 - COMPLETE OR UNSP SPONTANEOUS WITHOUT COMPLICATION Assessment/Plan Vaginal bleeding in IUP @ 14 weeks Inevitable Insert Misoprostol intravaginally until expulsion of the fetus.
[2017-11-29 15:35] LABS: BASO % 0.2 % (0-2.0); EOS % 2.3 % (0-4.5); HEMATOCRIT 37.5 % (32.4-45.2); HEMOGLOBIN 13.3 GM/dL (10.7-15.3); MCH 32.5 pg (25.7-33.7); MCHC 35.4 g/dl (32.0-36.0); MEAN CELL VOLUME 91.7 fl (80-96); MEAN PLT VOLUME 8.1 fl (7.5-11.1); MONO % 9.7 % (3.8-10.2); NEUT % 69.8 % (42.8-82.8); PLATELET COUNT 290 K/MM3 (134-434); RBC 4.08 M/mm3 (3.60-5.2); RDW 13.7 % (11.6-15.6); WHITE BLOOD COUNT 12.5 K/mm3 (4.0-10.0)
[2017-11-29 15:59] LABS: ALBUMIN 3.3 g/dl (3.4-5.0); ANION GAP 6 (8-16); BLOOD UREA NITROGEN 6 mg/dL (7-18); CALCIUM 8.9 mg/dL (8.5-10.1); CHLORIDE 109 mmol/L (98-107); CO2 22 mmol/L (21-32); CREATININE 0.5 mg/dL (0.55-1.02); GLUCOSE,RANDOM 92 mg/dL (74-106); POTASSIUM 3.9 mmol/L (3.5-5.1); SGOT/AST 16 U/L (15-37); SGPT/ALT 28 U/L (12-78); SODIUM 137 mmol/L (136-145)
[2017-11-29 16:00] LABS: ALK PHOS 42 U/L (45-117); BILIRUBIN,TOTAL 0.5 mg/dL (0.2-1.0); TOT PROT 6.6 g/dl (6.4-8.2)
[2017-11-29] MEDS ORDERED: MISOPROSTOL 100 MCG TABLET PV ONE (17:30)
[2017-11-29] MEDS ORDERED: MEPERIDINE HCL CARPU-JECT 50 MG/1 ML DISP.SYRIN IM ONE (18:26)
[2017-11-29] MEDS ORDERED: MEPERIDINE HCL CARPU-JECT 50 MG/1 ML DISP.SYRIN ONE (18:47)
[2017-11-29] MEDS ORDERED: CEPHALEXIN MONOHYDRATE 500 MG CAPSULE (UD) PO ONE (19:18)
[2017-11-29] MEDS ORDERED: CEPHALEXIN MONOHYDRATE 500 MG CAPSULE (UD) ONE (19:34)
[2017-11-29] MEDS ORDERED: ONDANSETRON 4 MG/2 ML VIAL ONE (19:36)
--- NOTE | 2017-11-29 19:39 | PDOC ---
*Physical Exam - Vital Signs Last Vital Signs Temp Pulse Resp BP Pulse Ox 98 F 71 18 98/59 99 11/29/17 11:07 11/29/17 17:26 11/29/17 17:26 11/29/17 17:26 11/29/17 17:26 - Physical Exam Female Pelvic Exam: positive: vaginal bleeding, other (large clots and tissue in vaginal vault. ) Gastrointestinal/Abdominal: positive: Normal Bowel Sounds, Soft Extremity: positive: Normal Capillary Refill, Normal Inspection, Normal Range of Motion Integumentary: positive: Normal Color, Dry, Warm Neurologic: positive: Fully Oriented, Alert, Normal Mood/Affect ED Treatment Course - LABORATORY CBC & Chemistry Diagram: 11/29/17 21:10 11/29/17 07:45 - ADDITIONAL ORDERS Additional order review: Laboratory Results 11/29/17 11/29/17 11/29/17 15:17 13:25 07:45 Sodium 137 Potassium 3.9 Chloride 109 H Carbon Dioxide 22 Anion Gap 6 L BUN 6 L Creatinine 0.5 L Creat Clearance w eGFR > 60 Random Glucose 92 Calcium 8.9 Total Bilirubin 0.5 AST 16 ALT 28 Alkaline Phosphatase 42 L Total Protein 6.6 Albumin 3.3 L Beta HCG, Quant 40020.6 Urine Color Yellow Urine Appearance Cloudy Urine pH 5.0 Ur Specific Regent 1.023 Urine Protein 2+ H Urine Glucose (UA) 2+ H Urine Ketones Trace H Urine Blood 3+ H Urine Nitrite Negative Urine Bilirubin Negative Urine Urobilinogen Negative Ur Leukocyte Esterase 3+ H Urine WBC (Auto) 295 Urine RBC (Auto) 365 Ur Epithelial Cells Few Urine Mucus Rare Acetone, Qual Negative L 11/29/17 15:17 RBC 4.08 MCV 91.7 MCHC 35.4 RDW 13.7 MPV 8.1 Neutrophils % 69.8 Lymphocytes % 18.0 D Monocytes % 9.7 Eosinophils % 2.3 Basophils % 0.2 - Medications Given in the ED: ED Medications Discontinued Medications Generic Name Dose Route Start Last Admin Trade Name Freq PRN Reason Stop Dose Admin Sodium Chloride 1,000 mls @ 1,000 mls/hr 11/29/17 14:17 11/29/17 15:18 Normal Saline - IV 11/29/17 15:16 1,000 mls/hr ASDIR STA Administration Meperidine HCl 50 mg 11/29/17 18:26 11/29/17 18:53 Demerol Injection - IM 11/29/17 18:27 50 mg ONCE ONE Administration Misoprostol 400 mcg 11/29/17 17:30 11/29/17 17:06 Cytotec PV 11/29/17 17:31 400 mcg ONCE ONE Administration Medical Decision Making - Medical Decision Making 11/29/17 20:06 Patient continues to have large amount of vaginal bleeding with clots and tissue. as per sign out fetus has been sent to pathology. paged Dr. mark for sign out. 11/29/17 22:[address] mark. Patient is pending OR *DC/Admit/Observation/Transfer Diagnosis at time of Disposition: Incomplete miscarriage - Discharge Dispostion Admit: Yes - Referrals Referrals: Parrish Coleman MD [Primary Care Provider] - - Patient Instructions - Post Discharge Activity
[2017-11-29] MEDS ORDERED: ONDANSETRON 4 MG/2 ML VIAL IVPUSH ONE (19:40)
[2017-11-29 21:38] LABS: BASO % 0.3 % (0-2.0); EOS % 0.4 % (0-4.5); HEMATOCRIT 35.4 % (32.4-45.2); HEMOGLOBIN 12.6 GM/dL (10.7-15.3); LYMPH % 7.8 % (8-40); MCH 32.7 pg (25.7-33.7); MCHC 35.5 g/dl (32.0-36.0); MEAN CELL VOLUME 92.1 fl (80-96); MEAN PLT VOLUME 8.3 fl (7.5-11.1); MONO % 6.5 % (3.8-10.2); PLATELET COUNT 246 K/MM3 (134-434); RBC 3.84 M/mm3 (3.60-5.2); WHITE BLOOD COUNT 14.3 K/mm3 (4.0-10.0)
--- NOTE | 2017-11-29 22:31 | PN ---
Progress Note (short form) - Note Progress Note: Patient re-evaluated after expulsion of the fetus without the placenta. Excessive bleeding noted. Decision to take patient to OR for suction D&C. Retained placenta Hemorrhage Pre op for suction D&C NPO Consent signed Anesthesia to see patient Problem List - Problems (1) Inevitable Code(s): O03.9 - COMPLETE OR UNSP SPONTANEOUS WITHOUT COMPLICATION
[2017-11-29 22:33] LABS: INR 0.97 (0.82-1.09)
[2017-11-29 22:36] LABS: ACTIVATED PTT 24.4 SECONDS (26.9-34.4)
[2017-11-29] MEDS ORDERED: ONDANSETRON 4 MG/2 ML VIAL IVPUSH PRN (22:59)
[2017-11-29] MEDS ORDERED: PROMETHAZINE HCL 25 MG/1 ML VIAL IVPUSH PRN (22:59)
[2017-11-29] MEDS ORDERED: LACTATED RINGERS SOLUTION 1,000 ML IV SCH (23:00)
[2017-11-29] MEDS ORDERED: PROPOFOL 20 ML ONE (23:33)
[2017-11-29] MEDS ORDERED: LIDOCAINE HCL/PF 2% SDV 5ML VIAL ONE (23:33)
[2017-11-29] MEDS ORDERED: DEXAMETHASONE SOD PHOSPHATE 4 MG/1 ML VIAL ONE (23:34)
--- NOTE | 2017-11-30 00:03 | OP ---
Operative Note - Note: Operative Date: 11/29/17 Pre-Operative Diagnosis: Retained placenta Operation: Suction D&C Findings: Retained placenta with hemorrhage Post-Operative Diagnosis: Same as Pre-op Surgeon: Isabelle Soriano Anesthesia: General Specimens Removed: Placenta Estimated Blood Loss (mls): 100 Operative Report Dictated: Yes
[2017-11-30] MEDS ORDERED: KETOROLAC TROMETHAMINE 30 MG/1 ML VIAL ONE (00:08)
[2017-11-30 00:53] VITALS: BP 99/72; PULSE 67
[2017-11-30 00:54] VITALS: TEMP 98.6
--- NOTE | 2017-11-30 01:55 | OP ---
DATE OF OPERATION: 11/29/2017 PREOPERATIVE DIAGNOSIS: Retained placenta with hemorrhage. POSTOPERATIVE DIAGNOSIS: Retained placenta with hemorrhage. PROCEDURE: Suction dilation and curettage. SURGEON: Isabelle Soriano MD ANESTHESIA: General. COMPLICATIONS: None. ESTIMATED BLOOD LOSS: 100 mL. PROCEDURE: The patient was taken to the operating room where general anesthesia was administered. Patient was then placed in lithotomy position. She was then prepped and draped in the appropriate sterile fashion. A weighted speculum was placed in the vagina and the anterior lip of the cervix was grasped with a single-toothed tenaculum. The portion of the placenta was noted at the cervical os. A ring forceps was used to remove the placenta. Then, a 10-mm suction curette was gently introduced into the uterine cavity. Suction curette was rotated to clear the uterus of all remaining products of conception. Sharp curettage was then performed. When finished, the instruments were removed. The patient was taken out of lithotomy position. She was taken to the PACU in stable condition. PATHOLOGY: Retained placenta. Andrew [id number]
--- NOTE | 2017-12-04 13:32 | PATH ---
Surgical Pathology Report Patient Name: DESIRAE KUMAR [facility]. Rec. #: [id number] /Age/Gender: 1985 (Age: 32) / F Account: [id number] Location: AMBULATORY SURG Taken: 11/29/2017 Received: 11/30/2017 Reported: 12/04/2017 Physicians: Jean Carlos Talbert M.D. Specimen(s) Received A: RETAINED PLACENTA B: FETUS Clinical History Spontaneous at 15 weeks, 5 days Final Diagnosis A. RETAINED PLACENTA, DELIVERY: 102 g IMMATURE PLACENTA WITH TRIVASCULAR UMBILICAL CORD AND MILD TO MODERATE ACUTE CHORIOAMNIONITIS . B. FETUS, DELIVERY: 66 G IMMATURE MALE FETUS. Electronically Signed Yee Contreras M.D. Gross Description A. Received in formalin labeled "retained placenta," is a 102 g placenta with attached membranes and umbilical cord. The membranes are castelan, translucent and insert marginally. The umbilical cord measures 7.5 cm in length and averages 0.3 cm in diameter. The cord inserts eccentrically, 1.5 cm to the nearest margin. No true knots or strictures are identified. The cut surface of the umbilical cord displays 3 vessels. The surface is butler blue with minimal fibrin deposition and appropriate caliber vessels. The maternal surface is red-brown with attached blood clot and multifocal defects. Sectioning reveals multiple foci of hemorrhage. Business Department Chair sections are submitted in 5 cassettes as follows: 1-membrane roll and umbilical cord; 1-1-petskbozwdh lesions; 8-cwoy-wuuehmxps section of placenta. B. Received in formalin labeled with the patient's name and indicated on the requisition to be a fetus is a 66 g intact fetus measuring 10.5 cm from crown to rump and 14 cm from crown to heel. Each foot measures 1.6 cm in length. There is a 10.5 cm in length portion of umbilical cord attached to the umbilicus. No true knots or strictures are identified. The cut surface of the umbilical cord reveals 3 vessels. The anus and nares are patent. The eyelids are fused shut. The upper and lower extremities are normal and well proportioned, without any bony defects. Each hand and foot displays 5 digits. There are no axial defects and the lumbosacral spine is intact. The heart is normally positioned and no cardiac or lung abnormalities are noted. The abdominal organs also occupy their normal anatomic position. The kidneys and adrenals are well formed. The genitourinary tract is unremarkable. The external genitalia are well formed and that of a male. The brain is macerated. Business Department Chair sections are submitted in 4 cassettes as follows: 1-thymus, heart, lungs; 2-liver, spleen, intestines, stomach; 3-kidneys, adrenals, testes; 4-brain. 11/30/2017 [facility]11/30/2017
== END 2017-11-30 03:10 | disposition home or self-care (01) ==
LOC: JER 05:52 → JASUSAT 22:07 → J5S 11-30 00:59 → JASUSAT 11-30 03:10
PROVIDERS: ATTEND Obstetrics & Gynecology
PROC: 10D17ZZ Extraction of Products of Conception, Retained, Via Natural or Artificial Opening (ICD-10-PCS; principal; 2017-11-29 23:00)
DX: O03.1 Delayed or excessive hemorrhage following incomplete spontaneous abortion (principal); Z3A.14 14 weeks gestation of pregnancy
CPT/HCPCS: 36415; 76801-TC; 80053; 81003; 81015; 82009; 84702; 85025; 85610; 85730; 86850; 86900; 86901; 87086; 88307-TC; 88309-TC; 94760; 99284-25; J7030

== ENCOUNTER 2018-11-28 13:44 | Emergency (ER) | payer OTHER ==
[2018-11-28 13:54] VITALS: BP 121/77; PULSE 77; TEMP 98.5; BMI 27.4
--- NOTE | 2018-11-28 15:49 | PDOC ---
History of Present Illness - General Chief Complaint: Pain Stated Complaint: ABD PAIN, + HOME PREG TEST Time Seen by Provider: 11/28/18 15:22 History Source: Patient - History of Present Illness Timing/Duration: reports: intermittent Quality: reports: cramping Past History - Past Medical History Allergies/Adverse Reactions: Allergies Allergy/AdvReac Type Severity Reaction Status Date / Time No Known Allergies Allergy Verified 11/28/18 13:54 Home Medications: Ambulatory Orders NK [No Known Home Medication] 11/28/18 COPD: No - Reproductive History Is Patient Now?: Yes (#): 5 Para: 0 Spontaneous : 4 - Suicide/Smoking/Psychosocial Hx Smoking History: Never smoked Have you smoked in the past 12 months: No Information on smoking cessation initiated: No Hx Alcohol Use: No Drug/Substance Use Hx: No Substance Use Type: None Review of Systems - Review of Systems Constitutional: No: Chills, Fever ABD/GI: Yes: Abdominal cramping. No: Nausea, Vomiting : No: Dysuria, Flank Pain *Physical Exam - Vital Signs Last Vital Signs Temp Pulse Resp BP Pulse Ox 98.5 F 77 18 121/77 99 11/28/18 13:51 11/28/18 13:51 11/28/18 13:51 11/28/18 13:51 11/28/18 13:51 - Physical Exam General Appearance: Yes: Appropriately Dressed. No: Apparent Distress HEENT: positive: Normal Voice Neck: positive: Supple Respiratory/Chest: negative: Respiratory Distress Gastrointestinal/Abdominal: positive: Normal Bowel Sounds, Soft. negative: Tender, Distended, Guarding, Rebound Musculoskeletal: negative: CVA Tenderness Integumentary: positive: Dry, Warm Neurologic: positive: Fully Oriented, Alert, Normal Mood/Affect Medical Decision Making - Medical Decision Making 11/28/18 15:38 32 yo F, (spon ab x 4), ~9-10 weeks by dates, tested + on home preg test 2 weeks ago, here w/ lower abd cramping on and off x 3 days. No vag bleed, dysuria, n/v See exam 1st trimester w/ abd pain No vag bleed or dysuria R/o ectopic -US -labs -ua 11/28/18 17:51 US demonstrates approximately 7-week-old fetus with cardiac activity. Beta over 66,000. No signs of infection on UA. Patient stable for discharge with ART COORDINATOR f/u *DC/Admit/Observation/Transfer Diagnosis at time of Disposition: Abdominal pain affecting - Discharge Dispostion Disposition: HOME Condition at time of disposition: Good - Referrals - Patient Instructions Printed Discharge Instructions: DI for Abdominal Pain -- Early Additional Instructions: Your ultrasound shows a 7 week old fetus with heart activity. Your beta was >69,000 Your urine showed no sign of infection Please follow up with Dr Majano next week - Post Discharge Activity
[2018-11-28 15:52] LABS: HCG,QUALITATIVE URINE Positive
[2018-11-28 15:55] LABS: EPI CELLS 7.2 /HPF (0-5/HPF); PH,URINE 6.5 (5.0-8.0); URINE APPEARANCE TURBID; URINE BACTERIA 433.9 /hpf (NEGATIVE); URINE BILIRUBIN NEGATIVE (NEGATIVE); URINE CASTS 3 /lpf (0-8); URINE COLOR YELLOW; URINE GLUCOSE (UA) NEGATIVE (NEGATIVE); URINE KETONE NEGATIVE (NEGATIVE); URINE LEUK ESTERASE TRACE (NEGATIVE); URINE NITRITE NEGATIVE (NEGATIVE); URINE PROTEIN NEGATIVE (NEGATIVE); URINE RBC 7 /hpf (0-4); URINE UROBILINOGEN 0.2 mg/dL (0.2-1.0); URINE WBC 7 /hpf (0-5)
== END 2018-11-28 18:00 | disposition home or self-care (01) ==
LOC: JER 13:44
DX: O26.891 Other specified pregnancy related conditions, first trimester (principal); Z3A.01 Less than 8 weeks gestation of pregnancy; R10.9 Unspecified abdominal pain
CPT/HCPCS: 36415; 76817-TC; 81003; 84702; 84703; 86850; 86900; 86901; 99282-25

== ENCOUNTER 2021-07-06 19:45 | Emergency (ER) | payer OTHER ==
[2021-07-06 19:50] VITALS: TEMP 98.2; BMI 29.1
[2021-07-06 22:54] LABS: BASO % 0.5 % (0-2.0); HEMATOCRIT 41.1 % (32.4-45.2); HEMOGLOBIN 14.3 GM/dL (10.7-15.3); LYMPH % 31.3 % (8-40); MCH 31.5 pg (25.7-33.7); MCHC 34.8 g/dl (32.0-36.0); MEAN CELL VOLUME 90.6 fl (80-96); MEAN PLT VOLUME 7.4 fl (7.5-11.1); NEUT % 55.2 % (42.8-82.8); PLATELET COUNT 330 10^3/uL (134-434); RBC 4.54 M/mm3 (3.60-5.2); RDW 13.8 % (11.6-15.6); WHITE BLOOD COUNT 10.7 K/mm3 (4.0-10.0)
[2021-07-06 22:59] LABS: EPI CELLS 20 /uL (0-25.1); HYALINE CASTS 0 /uL (0-3.1); URINE APPEARANCE CLEAR; URINE BACTERIA 640 /uL (0-1359); URINE BILIRUBIN NEGATIVE (NEGATIVE); URINE COLOR YELLOW; URINE GLUCOSE (UA) 3+ (NEGATIVE); URINE KETONE TRACE (NEGATIVE); URINE LEUK ESTERASE NEGATIVE (NEGATIVE); URINE NITRITE NEGATIVE (NEGATIVE); URINE PROTEIN NEGATIVE (NEGATIVE); URINE RBC 74 /uL (0-23.9); URINE UROBILINOGEN 0.2 mg/dL (0.2-1.0); URINE WBC 21 /uL (0-25.8)
[2021-07-06 23:16] LABS: CALCIUM 9.2 mg/dL (8.5-10.1)
[2021-07-06 23:17] LABS: ALBUMIN 3.5 g/dl (3.4-5.0); BLOOD UREA NITROGEN 8.4 mg/dL (7-18)
[2021-07-06 23:20] LABS: CREATININE 0.6 mg/dL (0.55-1.3)
[2021-07-06 23:22] LABS: BILIRUBIN,TOTAL 0.5 mg/dL (0.2-1)
[2021-07-07 00:57] VITALS: BP 113/80; PULSE 77
== END 2021-07-07 00:57 | disposition home or self-care (01) ==
LOC: JER 19:45
DX: O20.0 Threatened abortion (principal); Z3A.11 11 weeks gestation of pregnancy
CPT/HCPCS: 36415; 76817-TC; 80053; 81003; 84702; 85025; 87077; 87086; 99284-25

== ENCOUNTER 2022-05-15 15:54 | Emergency (ER) | payer OTHER ==
[2022-05-15 15:57] VITALS: BP 100/65; PULSE 71; RESP 18; TEMP 97; BMI 26.6
[2022-05-15] MEDS ORDERED: ACETAMINOPHEN 500 MG TABLET (FP) PO ONE (16:07)
[2022-05-15] MEDS ORDERED: ACETAMINOPHEN 500 MG TABLET (FP) ONE (16:39)
[2022-05-15 17:27] LABS: HCG,QUALITATIVE URINE Positive
[2022-05-15 17:31] LABS: EPI CELLS 18 /uL (0-25.1); HYALINE CASTS 0 /uL (0-3.1); PH,URINE 5.5 (5.0-8.0); URINE APPEARANCE CLEAR; URINE BACTERIA 453 /uL (0-1359); URINE BILIRUBIN NEGATIVE (NEGATIVE); URINE COLOR YELLOW; URINE GLUCOSE (UA) NEGATIVE (NEGATIVE); URINE KETONE NEGATIVE (NEGATIVE); URINE LEUK ESTERASE 1+ (NEGATIVE); URINE NITRITE NEGATIVE (NEGATIVE); URINE PROTEIN NEGATIVE (NEGATIVE); URINE RBC 644 /uL (0-23.9); URINE WBC 49 /uL (0-25.8)
[2022-05-15 17:34] LABS: BASO % 0.4 % (0-2.0); HEMATOCRIT 43.8 % (32.4-45.2); HEMOGLOBIN 14.6 GM/dL (10.7-15.3); LYMPH % 32.9 % (8-40); MCH 30.2 pg (25.7-33.7); MCHC 33.2 g/dl (32.0-36.0); MEAN CELL VOLUME 90.8 fl (80-96); MEAN PLT VOLUME 7.5 fl (7.5-11.1); MONO % 6.3 % (3.8-10.2); NEUT % 59.4 % (42.8-82.8); PLATELET COUNT 358 10^3/uL (134-434); RBC 4.83 M/mm3 (3.60-5.2); WHITE BLOOD COUNT 10.3 K/mm3 (4.0-10.0)
[2022-05-15 17:45] LABS: CALCIUM 9.4 mg/dL (8.5-10.1)
[2022-05-15 17:46] LABS: BLOOD UREA NITROGEN 7.4 mg/dL (7-18)
[2022-05-15 17:49] LABS: CREATININE 0.6 mg/dL (0.55-1.3)
== END 2022-05-15 19:54 | disposition home or self-care (01) ==
LOC: JER 15:54
DX: O20.0 Threatened abortion (principal); O23.41 Unspecified infection of urinary tract in pregnancy, first trimester; Z3A.01 Less than 8 weeks gestation of pregnancy
CPT/HCPCS: 36415; 76817-TC; 80048; 81003; 84702; 84703; 85025; 86850; 86900; 86901; 87086; 99284-25